=== PATIENT | female | born 1965 | race Caucasian/White ===

== ENCOUNTER 2017-01-16 20:38 | Emergency (ER) | payer OTHER ==
[~2017-01-16] VITALS: Ht 167.6 cm; Wt 68.0 kg
[2017-01-16 20:46] VITALS: BP 174/100
--- NOTE | 2017-01-16 21:17 | ED UPPER/LOWER EXTREMITY COMPL ---
History of Present Illness General Chief Complaint: Shoulder Injury Stated Complaint: LEFT SHOULDER/ARM PAIN S/P KNOCK DOWN BY DOG Source: patient Exam Limitations: no limitations Vital Signs & Intake/Output Vital Signs & Intake/Output Vital Signs Date Time Temp Pulse Resp B/P B/P Pulse O2 O2 Flow FiO2 Mean Ox Delivery Rate 01/16 2046 97.9 88 20 174/100 97 Room Air Allergies Coded Allergies: NO KNOWN ALLERGIES (07/28/14) Reconcile Medications Cyclobenzaprine HCl 10 MG TABLET 1 TAB PO TID SPASMS Ibuprofen 800 MG TABLET 1 TAB PO TID PAIN Triage Note: KNOCKED TO GROUND BY LARGE DOG PAIN LEFT SHOULDER / SCAPULA AREA Triage Nurses Notes Reviewed? yes Onset: Abrupt Duration: hour(s):, constant Timing: single episode today Severity: moderate, severe Pain/Injury Location: Left: Shoulder. Method of Injury: fall HPI: 51-year-old female comes into emergency room for further evaluation of left shoulder pain. Patient reports that she was knocked down by a dog and came down on her left shoulder. Sharp pain. Feels tight and pulling. Limited range of motion. Denies any head trauma or injury anywhere else on her body. Denies any other associated symptoms. Past History Travel History Traveled to [place] past 21 day No Medical History Any Pertinent Medical History? see below for history Surgical History Surgical History: non-contributory Psychosocial History Who do you live with Spouse Services at Home None What is your primary language Malagasy Family History Hx Contributory? No Review of Systems Review of Systems Constitutional: Reports: no symptoms. EENTM: Reports: no symptoms. Respiratory: Reports: no symptoms. Cardiovascular: Reports: no symptoms. Gastrointestinal/Abdominal: Reports: no symptoms. Genitourinary: Reports: no symptoms. Musculoskeletal: Reports: see HPI. Skin: Reports: no symptoms. Neurological/Psychological: Reports: no symptoms. Hematologic/Endocrine: Reports: no symptoms. Immunological: Reports: no symptoms. All Other Systems: Reviewed and Negative Physical Exam Physical Exam General Appearance: well developed/nourished, mild distress Head: atraumatic Eyes: Bilateral: normal appearance. Ears, Nose, Throat: normal ENT inspection, hearing grossly normal Neck: normal inspection Cardiovascular/Respiratory: no respiratory distress Back: normal inspection Shoulder Left: soft tissue tenderness, limited range of motion Elbow Left: normal range of motion Neurologic/Tendon: normal sensation, normal motor functions, normal tendon functions, responds to pain, no evidence tendon injury, no pulse deficit Skin: intact, normal color, warm/dry Lymphatic: no anterior cervical evelyn Diagram Shoulders Front/Back 1) tenderness with palpation Progress Differential Diagnosis: contusion, dislocation, DVT, fracture, gout, septic arthritis, sprain, tendon injury, muscle strain, rotator cuff strain, Plan of Care: Orders Procedure Date/time Status Durable Medical Equipment 01/16 2149 Active Diagnostic Imaging: Viewed by Me: Radiology Read. Discussed w/RAD: Radiology Read. Radiology Impression: SERVICE DATE: 01/16/17 EXAM TYPE: RAD - XRY- SHOULDER COMPLETE-LEFT EXAMINATION: XR SHOULDER, LEFT CLINICAL INFORMATION: Fracture. Pain limited movement. COMPARISON: None TECHNIQUE: AP external rotation, Grashey, scapular Y, and axillary views of the left shoulder. FINDINGS : The bones and soft tissues are normal. No fracture. Glenohumeral and acromioclavicular alignment is anatomic with normal joint space. No abnormal soft tissue calcifications. Incidental note is made of a radiopaque object shaped like a "spring" overlying the shoulder region likely outside the patient IMPRESSION: Normal left shoulder. DICTATED BY: BEVERLY JONES MD DATE/TIME DICTATED:01/16/172122 FOOD SELECTOR:RAJAT DATE/TIME TRANSCRIBED:2122 CONFIDENTIAL, DO NOT COPY WITHOUT APPROPRIATE AUTHORIZATION. Departure Departure Disposition: HOME OR SELF CARE Condition: Stable Clinical Impression Primary Impression: Left shoulder strain Referrals: ANURADHA NOLAN,RODDY Pisano (PCP/Family) YANA NOLAN,SHAYE Obregon Additional Instructions: Take ibuprofen and Flexeril as prescribed. Ice for the first 48 hours followed by moist heat. Return if any other concerns worsening symptoms. Follow-up with orthopedic doctor for possible physical therapy if symptoms don't improve. Please go over all results of today's visit with your primary care doctor. Contact your primary care doctor to let them know you were here in the emergency room. There may be nonspecific findings which may not be related to your visit today here in the emergency room but may require further evaluation and chronic monitoring by your primary care doctor. If you had a laceration today the chance of foreign body always remains. You should follow-up with your primary care doctor for recheck in 3-5 days for a wound check. If you had an x-ray done there is a chance that a fracture could have been missed on initial read and you should follow-up with your primary care doctor for repeat x-rays if symptoms persist. If your blood pressure was elevated here in the emergency room please have rechecked by her primary care doctor within the next 48 hours by your primary care doctor. If you were prescribed a narcotic here in the emergency room or any type of controlled substances you're not allowed to drive while taking this medication or operate any type of heavy machinery. Narcotics can make you feel lightheaded dizziness nausea and can cause constipation. You may need to worm picker a stool softener. Thank you for choosing [facility] emergency room. Please return to the emergency room immediately if you have any other concerns worsening of symptoms. Departure Forms: Customer Survey General Discharge Information Prescriptions: Current Visit Scripts Ibuprofen 1 TAB PO TID #30 TAB Cyclobenzaprine HCl 1 TAB PO TID #20 TAB Procedures Splinting Location: left shoulder Manual Alignment Performed: No Pre-Made Type: shoulder immobilizer Splint Applied By: splint applied by me Pre-Proc Neuro Vasc Exam: normal Post-Proc Neuro Vasc Exam: normal
--- NOTE | 2017-01-16 21:28 | RADIOLOGY REPORT ---
EXAMINATION: XR SHOULDER, LEFT CLINICAL INFORMATION: Fracture. Pain limited movement. COMPARISON: None TECHNIQUE: AP external rotation, Grashey, scapular Y, and axillary views of the left shoulder. FINDINGS: The bones and soft tissues are normal. No fracture. Glenohumeral and acromioclavicular alignment is anatomic with normal joint space. No abnormal soft tissue calcifications. Incidental note is made of a radiopaque object shaped like a "spring" overlying the shoulder region likely outside the patient IMPRESSION: Normal left shoulder.
[2017-01-16] MEDS ORDERED: IBUPROFEN800 M1 PO (21:48)
[2017-01-16] MEDS ORDERED: CYCLOBENZAPRINE10 M1 PO (21:48)
== END 2017-01-16 22:36 ==
LOC: ERH 20:38
DX: S46.912A Strain of unspecified muscle, fascia and tendon at shoulder and upper arm level, left arm, initial encounter (principal); W19.XXXA Unspecified fall, initial encounter; Y93.89 Activity, other specified; Y92.9 Unspecified place or not applicable
CPT/HCPCS: 73030-LT

== ENCOUNTER 2018-01-05 10:08 | Emergency (ER) | payer SELFPAY ==
[~2018-01-05] VITALS: Ht 167.6 cm; Wt 44.5 kg
[~2018-01-05 10:08] MED LIST: BACTROBAN15 GM TOP; CYCLOBENZAPRINE10 M1 PO; ESCITALOPRAM OX20 MG PO; IBUPROFEN800 M1 PO; KEFLEX500 M1 PO
[2018-01-05 13:49] LABS: ABSOLUTE BASOPHIL COUNT 0.1 /CUMM (0.0-0.2); ABSOLUTE EOSINOPHIL COUNT 0 /CUMM (0.0-0.7); ABSOLUTE GRANULOCYTE CT 8.9 /CUMM (1.4-6.5); ABSOLUTE LYMPH COUNT 1.6 /CUMM (1.2-3.4); ABSOLUTE MONOCYTE COUNT 0.8 /CUMM (0.10-0.60); BASOPHIL % 0.4 % (0.0-2.0); EOSINOPHIL % 0.3 % (0-5); GRANULOCYTE % 78.1 % (42.2-75.2); HEMATOCRIT 32.8 % (37-47); MEAN CORPUSCULAR HGB 24.2 PG (27.0-31.0); MEAN CORPUSCULAR HGB CONC 31.5 G/DL (33.0-37.0); MEAN CORPUSCULAR VOLUME 76.8 FL (81.0-99.0); MEAN PLATELET VOLUME 7.6 FL (7.4-10.4); PLATELET COUNT 374 /CUMM (130-400); RBC DISTRIBUTION WIDTH 18.3 % (11.5-14.5); RED BLOOD CELL CT 4.26 /CUMM (4.20-5.40); WHITE BLOOD CELL COUNT 11.4 /CUMM (4.8-10.8)
--- NOTE | 2018-01-05 14:43 | ED PSYCHIATRIC COMPLAINT ---
See Addendum History of Present Illness General Chief Complaint: ETOH/Drug Related Complaint Stated Complaint: DETOXING FROM [facility] Source: patient, old records Exam Limitations: no limitations Vital Signs & Intake/Output Vital Signs & Intake/Output Vital Signs Date Time Temp Pulse Resp B/P B/P Pulse O2 O2 Flow FiO2 Mean Ox Delivery Rate 01/06 2228 98.5 70 20 108/71 05/ 2226 98.5 70 18 108/71 97 Room Air / 1908 97.4 98 20 143/81 05/05 1908 97.4 98 20 143/81 05/05 1903 97.4 98 20 143/81 99 Room Air 05/ 1704 98.8 84 18 137/82 05/05 1622 98.8 84 18 137/82 95 Room Air / 1511 98.4 92 20 147/96 05/05 1504 98.4 92 20 147/96 97 05/05 1501 104 157/79 05/05 1347 98.0 104 22 157/79 98 Room Air / 1031 98.0 112 24 170/97 99 Room Air / 1029 98.0 109 18 170/97 Allergies Coded Allergies: NO KNOWN ALLERGIES (07/28/14) Reconcile Medications Cephalexin (Keflex) 500 MG CAPSULE 1 CAP PO TID cellulitis Escitalopram Oxalate 20 MG TABLET 1 TAB PO DAILY MENTAL HEALTH (Reported) Mupirocin Calcium (Bactroban) 2 % CREAM..G. 1 KVNG TOP TID cellulitis apply to affected area(s) Triage Note: 52F SEEKING ETOH DETOX, HAS BEEN DRINKING APPROX 15MONTHS LARGE BOTTLE OF WINE AND FIREBALL DAILY. 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 DENIES HX DT'S OR W/D SEIZURES. CIWA 8. TEARFUL IN TRIAGE. DENIES SI/HI AND AH/VH. CALM, COOPERATIVE. Triage Nurses Notes Reviewed? yes Onset: Just prior to arrival Duration: hour(s):, better, constant Timing: recent history Severity: moderate Associated Symptoms: anxiety, impaired concentration LMP (ages 10-50): post menopausal : No Patient currently breastfeeds: No HPI: The patient normally drinks a large bottle of wine and shots daily. She stopped drinking last night and this morning woke with shaking anxiety that she drank alcohol to improved symptoms. She denies fever chills nausea vomiting diarrhea abdominal pain chest pain shortness breath headache dysuria rash bleeding suicidal ideation homicidal ideation hallucination. (Sang Groves MD) Past History Travel History Traveled to [place] past 21 day No Medical History Any Pertinent Medical History? see below for history Neurological: NONE EENT: NONE Cardiovascular: NONE Respiratory: NONE Gastrointestinal: GASTRIC BYPASS Hepatic: NONE Renal: NONE Musculoskeletal: NONE Psychiatric: anxiety, depression, DORA Endocrine: NONE Tetanus Vaccine: 04/07/17 Surgical History Surgical History: non-contributory Psychosocial History Who do you live with Spouse Services at Home None What is your primary language Kyrgyz Tobacco Use: Current Daily Use Daily Tobacco Use Amount/Type: => 5 Cigarettes daily ETOH Use: alcoholic Illicit Drug Use: denies illicit drug use Family History Hx Contributory? No (Sang Groves MD) Review of Systems Review of Systems Constitutional: Reports: no symptoms. EENTM: Reports: no symptoms. Respiratory: Reports: no symptoms. Cardiovascular: Reports: no symptoms. GI: Reports: no symptoms. Genitourinary: Reports: no symptoms. Musculoskeletal: Reports: no symptoms. Skin: Reports: no symptoms. Neurological/Psychological: Reports: see HPI, depressed. Hematologic/Endocrine: Reports: no symptoms. Immunologic/Allergic: Reports: no symptoms. All Other Systems: Reviewed and Negative (Sang Groves MD) Physical Exam Physical Exam General Appearance: well developed/nourished, alert, awake, anxious, mild distress, intoxicated, obese Head: atraumatic, normal appearance Eyes: Bilateral: normal appearance, PERRL, EOMI. 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 patient not suicidal (Yaneli NOLAN,Sang) Progress Differential Diagnosis: drug intoxication, drug overdose, drug withdrawal, hypoglycemia Plan of Care: Orders Procedure Date/time Status Patient Safety Monitor 01/05 1755 Active EKG 01/05 1504 Active CASE MANAGEMENT CONSULT 01/05 142 Active Patient Safety Monitor 01/05 1357 Active CIWA 01/05 1357 Active URINE DRUGS OF ABUSE 01/05 1030 Complete LIPASE 01/05 103 Complete ETHANOL 01/05 103 Complete COMPREHENSIVE METABOLIC PANEL 01/05 1030 Complete CBC WITHOUT DIFFERENTIAL 01/05 1030 Complete Current Medications Sig/Adilia Start time Last Medication Dose Stop Time Status Admin Escitalopram Oxalate 20 MG DAILY 01/06 0900 UNVr (Lexapro) Quetiapine Fumarate 100 MG QPM 01/05 2100 UNVr 01/05 (Seroquel) 190 Clonidine 0.1 MG TID 01/05 142 UNVr 01/05 (Catapres) 190 Gabapentin 300 MG Q8 01/05 142 UNVr 01/05 (Neurontin) 190 Laboratory Tests 01/05/18 1339: Anion Gap 12, Estimated GFR > 60, BUN/Creatinine Ratio 20.0, Glucose 96, Calcium 9.0, Total Bilirubin 0.3, AST 23, ALT 23, Alkaline Phosphatase 110, Total Protein 7.1, Albumin 4.1, Globulin 3.0, Albumin/Globulin Ratio 1.4, Lipase 215, CBC w Diff NO MAN DIFF REQ, RBC 4.26, MCV 76.8 L, MCH 24.2 L, MCHC 31.5 L, RDW 18.3 H, MPV 7.6, Gran % 78.1 H, Lymphocytes % 13.8 L, Monocytes % 7.4, Eosinophils % 0.3, Basophils % 0.4, Absolute Granulocytes 8.9 H, Absolute Lymphocytes 1.6, Absolute Monocytes 0.8 H, Absolute Eosinophils 0, Absolute Basophils 0.1, Serum Alcohol 186.0 01/05/18 1048: Urine Opiates Screen < 100, Methadone Screen 64, Barbiturate Screen < 60, Ur Phencyclidine Scrn < 6.00, Amphetamines Screen < 100, U Benzodiazepines Scrn > 800 H, Urine Cocaine Screen < 50, Urine Cannabis Screen < 5.00 Initial ED EKG: normal axis, normal intervals, normal p-waves, normal QRS complex, normal sinus rhythm, no ST T wave changes Prior EKG: unchanged Rhythm Strip: normal sinus rhythm Hand-Off Endorsed To: Juan NOLAN,Jaime Obregon Endorsed Time: 1899 Pending: consult (case management), other (CIWA) (Sang Groves MD) Departure Departure Disposition: STILL A PATIENT Condition: Stable Clinical Impression Primary Impression: Alcohol dependence Referrals: Janae NOLAN,Meron Pisano (PCP/Family) Departure Forms: Customer Survey General Discharge Information (Sang Groves MD) Departure Comments pt signed out to me by dr. groves, 01/05/18, 7pm pt signed out to dr. groves by me, 01/06/18, 7am. (Juan NOLAN,Jaime Obregon)
[2018-01-06] MEDS ORDERED: CLONIDINE HCL0.1 MG PO (10:58)
[2018-01-06] MEDS ORDERED: NEURONTIN100 M1 PO (10:58)
[2018-01-06 11:37] VITALS: BP 118/72
== END 2018-01-06 11:47 ==
LOC: ERH 10:08
PROVIDERS: Emergency Medicine
DX: F10.20 Alcohol dependence, uncomplicated (principal)
CPT/HCPCS: 80307; 93005; 93010; G0480